=== PATIENT | male | born 1970 | race Caucasian/White ===

== ENCOUNTER 2021-11-21 07:30 | Outpatient (RCR) | payer BC, SELFPAY | END 2022-02-19 09:45 | disposition home or self-care (01) | PROVIDERS: Visit Provider Student in an Organized Health Care Education/Training Program | DX: M54.2 Cervicalgia (principal); Z51.89 Encounter for other specified aftercare | CPT/HCPCS: 97110; 97140; 97162 ==

== ENCOUNTER 2022-12-04 17:01 | Emergency (ER) | payer BC, SELFPAY ==
[2022-12-04 17:17] VITALS: BP 120/77; PULSE 67; RESP 18; TEMP 36.4; O2SAT 97
== END 2022-12-04 18:48 | disposition left against medical advice (07) ==
PROVIDERS: Emergency Provider Family Medicine; PCP Family Medicine
DX: Z53.21 Procedure and treatment not carried out due to patient leaving prior to being seen by health care provider (principal)

== ENCOUNTER 2023-06-04 15:28 | Emergency (ER) | payer BC, SELFPAY ==
[2023-06-04 15:38] VITALS: BP 134/84; PULSE 70; RESP 16; TEMP 36.4; O2SAT 99; BMI 23.1
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
== END 2023-06-04 18:22 | disposition home or self-care (01) ==
PROVIDERS: Emergency Provider Emergency Medicine; PCP Family Medicine
DX: F41.9 Anxiety disorder, unspecified (principal)
CPT/HCPCS: 99282; 99283

== ENCOUNTER 2023-08-07 13:47 | Emergency (ER) | payer BC, SELFPAY ==
--- NOTE | 2023-08-07 13:49 | ED.NURSE ---
pt presented to ED and sat in chair in waiting room. from the waiting room, pt called PD to talk. feels the hospital is a safe place to talk to PD. PD presented and talked to the pt at length, sign a refusal of service form and left.
--- OUTSIDE RECORDS SUMMARY | 2023-08-07 14:12 | XMS_ITS ---
Author Name Unknown Organization [facility] Address [address] [place] [address] Care Team Providers Care Sales And Marketing Professional Name Role Phone Unavailable Unavailable Unavailable Surgery Details Not on file Complications Check Surgery Details section. Procedure Estimated Blood Loss Check Surgery Details section. Procedure Findings Check Surgery Details section. Procedure Specimens Taken Check Surgery Details section.
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
--- OUTSIDE RECORDS SUMMARY | 2023-08-07 14:12 | XMS_ITS | Clinical Summary ---
Author Name Unknown Organization [facility] Address [place], [place] [address] Care Team Providers Care Resident Care Manager Rn Name Role Phone Jalyn Huerta MD Primary Care Provider + Allergies No known active allergies Medications Medication Sig Dispensed Refills Start Date End Date Status fluticasone (50 mcg per actuation) nasal solution (FLONASE)Indications:Al lergic rhinitis, unspecified seasonality, unspecified trigger Inhale 2 Sprays in the nostril(s) once daily. 16 g 08/06/2019 Active cetirizine (ZYRTEC) 10 mg tablet Take 1 Tablet (10 mg) by mouth once daily. 0 09/15/2020 Active Active Problems Problem Noted Date Diagnosed Date ACP (advance care planning) 12/12/2020 Overview: Patient has registered for the virtual ACP class on at 3 PM, but did not attend. Annamaria Bird STOREROOM CLERK Advance Care Planning Educator Cough 09/26/2016 Encounter for long-term (current) use of other m edications 08/24/2011 Bipolar affective disorder 06/17/2008 Overview: Patient is not in agreement with this diagnosis and has requested it be removed from his chart. S/P Achilles tendon repair 05/05/2008 Resolved Problems Problem Noted Date Diagnosed Date Resolved Date Bipolar disorder, most recent episode manic 07/27/2019 12/21/2020 Bipolar I disorder, most rec ent episode (or current) manic, mild 06/01/2008 06/17/2008 Bipolar I disorder, most rec ent episode (or current) manic, severe, specified as with psychotic behavior 04/27/2008 06/17/2008 Rule out Schizoaffective Dis order, Chronic Condition with Acute Exacerbation 04/27/20082019 Immunizations Name Administration Dates Next Due COVID-19 vaccine (Stroho NTAlluring Logic 30mcg/0.3mL) PF, MDV 07/26/2020,07/05/2020 Influenza A (H1N1), Inactivated 03/08/2009 Influenza A (H1N1), Live Intranasal 12/29/2012 Influenza, IIV3 (Age >=3 years) 01/01/2013,12/19,02/02/2006 Influenza, IIV4 12/21/2020, 0,04/10/2018,2016,03/08/2009 Influenza, IIV4 (=>6mos) MDV 12/14/2015,01/06/20 15 Influenza,LAIV4 Live Intrana ehsan (Flumist) 12/29/2012 Td (Age >=7 Years) 03/25/1997 Td, Preservative Free (age > = 7 Years) 11/20/2007 Tdap 12/30/2019,09/11/2017 Zoster (Shingrix-RZV, recombinant) 10/06/2020, Family History Medical History Relation Name Comments Alcoholism Brother Asthma Father Hypertension Father Psychiatric illness Father Cancer Mother Relation Name Status Comments Brother Father Mother Social History Tobacco Use Types Packs/Day Years Used Date Smoking Tobacco: Never Smokeless Tobacco: Never Tobacco Cessation:Counseling Given: Yes Alcohol Use Standard Drinks/Week Comments Not Currently 0 (1 standard drink = 0.6 oz pur e alcohol) 1 drink monthly PHQ-2 Answer Date Recorded PHQ-2 TOTAL SCORE 0 09/19/2021 Social Connections Answer Date Recorded Frequency of Communication with Friends and Fami ly Not on file 07/10/2022 Financial Resource Strain Answer Date R ecorded Difficulty of Paying Living Expenses 2 07/06/2021 Difficulty of Paying Living Expenses 1 07/06/2021 Food Insecurity Answer Date Recorded Worried About Running Out of Food in the Last Ye ar 1 07/06/2021 Transportation Needs Answer Date Record ed Lack of Transportation (Medical) 1 07/06/2021 Housing Stability Answer Date Recorded Unable to Pay for Housing in the Last Year 2 07/06/2021 Sex and Gender Information Value Date Recorded Sex Assigned at Male 04/13/2020 11:24 PM INTERNAL AFFAIRS COMMANDER Gender Identity Male 05/27/2021 12:46 PM INTERNAL AFFAIRS COMMANDER Sexual Orientation Straight 04/13/2020 11 :24 PM INTERNAL AFFAIRS COMMANDER Obstetrics History Last Filed Vital Signs Vital Sign Reading Time Taken Comments Blood Pressure 138/86 05/09/2022 2:06 PM INTERNAL AFFAIRS COMMANDER Pulse 71 05/09/2022 2:06 PM INTERNAL AFFAIRS COMMANDER Temperature 36.3 ??C (97.4 ??F) 05/09/2022 2:06 PM CS T Respiratory Rate 20 04/05/2022 7:39 PM INTERNAL AFFAIRS COMMANDER Oxygen Saturation 100% 05/09/2022 2:06 PM INTERNAL AFFAIRS COMMANDER Inhaled Oxygen Concentration - - Weight 91.9 kg (202 lb 9.6 oz) 05/09/2022 2:06 P M INTERNAL AFFAIRS COMMANDER Height 193 cm (6' 4) 04/05/2022 7:30 PM INTERNAL AFFAIRS COMMANDER Body Mass Index 24.66 04/05/2022 7:30 PM INTERNAL AFFAIRS COMMANDER Plan of Treatment Health Maintenance Due Date Last Done Comments HIV for age 15-65 1985 BMI (ht and wt on same day) for age 18+ 09/19/2022 09/19/2021, 08/17/2021, 12/21/2020, Additional history exists Depression screening for age 12+ 09/20/2022 09/20/2021, 09/19/2021, 07/15/2021, Additional history exists COVID-19 vaccine series ( season) 2022 03/08/2022, 11/09/2021, 02/03/2021, Additional history exists Influenza for age 50-64 11/24/2023 12/22/19, 12/30/2019, 04/10/2018, Additional history exists Lipids for age 45-75 09/29/2025 09/29/2020, 09/25/2019, 08/19/2019, Additional history exists Tetanus booster 12/29/2029 12/30/2019, 06, 11/20/2007, Additional history exists Colonoscopy through age 75 06/30/2030 06/30/2020, Tdap Completed 12/30/2019, 09/11/2017 Zoster (shingles) series for age 50+ Completed 10/06/2020, 06/15/2020 Hepatitis C screening for age 18-79 Completed 09/19/2021 Pneumococcal series for age 6-64 Aged Out No longer eligible based on patient's age to complete this topic Procedures Procedure Name Priority Date/Time Associated Diagnosis Comments ANTI HCV Routine 09/19/2021 9:02 AM CDT Need for hepatitis C screening test LIPID PANEL W REFLEX MEASURED LDL Routine 09/29/2020 9:57 AM CDT Bipolar 1 disorder (HC) SCAN-COLONOSCOPY 06/30/2020 12:0 0 AM CDT from Last 3 Months or Most Recently Relevant to Health Maintenance Results * ANTI HCV (09/19/2021 9:02 AM CDT) Pathologist [facility] HEPATITIS C ANTIBODY Non-React sue Non-React sue 09/19/2021 5:48 PM CDT [facility] Comment:Antibodies to HCV no t detected; does not exclude the possibility of exposure to HCV. Blood BLOOD SPECIMEN / Unknown Venipuncture / Unknown 09/19/2021 9:02 AM CDT 09/19/2021 9:03 AM CDT Patrick Ramirez DO [facility] [address] [place] [address], * LIPID PANEL W REFLEX MEASURED LDL (09/29/2020 9:57 AM CDT) CHOLESTEROL,TOTAL 162 100 - 199 mg/dL 09/29/2020 5:50 PM CDT [facility] TRIGLYCERIDES 98 <150 mg/dL 09/29/2020 5:50 PM CDT [facility] HDL CHOLESTEROL 57 >40 mg/dL 5:50 PM CDT [facility] NON-HDL CHOLESTEROL 105 <145 mg/dl 09/29/2020 5:50 PM CDT [facility] CHOL/HDL RATIO 2.84 <4.50 09/29/2020 5:50 PM CDT [facility] LDL CHOLESTEROL 85 <=130 mg/dL 09/29/2020 5:50 PM CDT [facility] VLDL CHOLESTEROL 20 mg/dL 09/30/19 21 5:50 PM CDT [facility] PROVIDER ORDERED STATUS RANDOM 09/29/2020 5:50 PM CDT [facility] Blood BLOOD SPECIMEN / Unknown Venipuncture / Unknown 09/29/2020 9:57 AM CDT 09/29/2020 9:59 AM CDT Amanda Blount [facility] [address] [place] [address], [place] * SCAN-COLONOSCOPY (06/30/2020 12:00 AM CDT) Scanner OTHER from Last 3 Months or Most Recently Relevant to Health Maintenance Additional Health Concerns Infection Onset Date Last Indicated MRSA Comment:Order contact precautions. 07/27/19 pt eligible for screening Nares surveillance cultures needed to clear patient if <12 months since positive culture. If >12 months since positive culture, precautions can be discontinued if patient has no MRSA risk factors. 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 scrotum exclusions for contact precaution discontinuation (if > 12 months since positive culture): resides in acute/chcf care, receiving hemodialysis, has chronic open wounds/skin damage, has long-term percutaneous indwelling medical devices Exclusions for nares collection (if <12 months since positive culture) include all of the previous exclusions plus patients on antibiotics 7 days prior to collection 07/27/2019 07/27/2019 Advance Directives * Full Code (Latest Code Status on File) Date Activated Date Inactivated Comments 07/26/2019 8:00 PM 08/05/2019 7:31 PM * Full Code Date Activated Date Inactivated Comments 05/04/2008 6:06 PM 05/19/2008 9:17 PM Care Teams Resident Care Manager Rn Relationship Specialty Start Date End Date Jalyn Huerta MD [address] [place] [address] PCP - General Family Practice 08/17/21
--- OUTSIDE RECORDS SUMMARY | 2023-08-07 14:12 | XMS_ITS | Referral Summary ---
Author Name Unknown Organization [facility] Address [address] [place] [address] Care Team Providers Care Yarn Cleaner Name Role Phone Unavailable Primary Care Provider Unavailabl e Source Comments Patient records contain information from all sites at [facility]. For routine questions regarding patient records, call [phone] during business hours, M-F 8:00 AM - 5:00 PM Central Time. Record requests for emergency care only can be directed to [phone] at any time.[facility] Social History Tobacco Use Types Packs/Day Years Used Date Smoking Tobacco: Never Assessed Nutrition Answer Date Recorded Nutrition: EVOO Fat Source Unknown 04/06 Nutrition: Servings of Fruits/Vegetables per Day Not on file 04/06/2022 Dental Answer Date Recorded Dental: Regular Dentist Unknown 04/06/19 Sex and Gender Information Value Date Recorded Sex Assigned at Not on file Gender Identity Not on file Sexual Orientation Not on file Plan of Treatment Not on file Procedures Procedure Name Priority Date/Time Associated Diagnosis Comments EXTI BASIC METABOLIC PANEL, S/P Routine 09/19/2021 9:02 AM CDT EXTI LIPID PANEL W REFLEX MEASURED LDL Routine 09/29/2020 9:57 AM CDT from Last 3 Months or Most Recently Relevant to Health Maintenance
--- OUTSIDE RECORDS SUMMARY | 2023-08-07 14:12 | XMS_ITS | Clinical Summary ---
Author Name Unknown Organization [facility] Address [address] [place] [address] Care Team Providers Care Lens Coating Technician Name Role Phone Unavailable Primary Care Provider Unavailabl e Source Comments Patient records contain information from all sites at [facility]. For routine questions regarding patient records, call [phone] during business hours, M-F 8:00 AM - 5:00 PM Central Time. Record requests for emergency care only can be directed to [phone] at any time.[facility] Social History Tobacco Use Types Packs/Day Years [...] Orientation Not on file Plan of Treatment Health Maintenance Due Date Last Done Comments CT Colonography 1970 Cologuard 1970 Colonoscopy 1970 Colorectal Cancer Screening 1970 FIT 1970 HIV Screening 1970 Hepatitis C Screening 1970 Hepatitis B Vaccines (1 of 3 - 19+ 3-dose series) 1989 Depression Screening (Annual PHQ-2) 03/25/2023 Fasting Glucose for Diabetes Screening 09/19/2024 09/19/2021, 09/25/2019, 08/19/2019, Additional history exists Lipid (Cholesterol) Screening 09/29/2025 09/29/2020, 09/25/2019, 08/19/2019, Additional history exists DTaP,Tdap,and Td Vaccines (3 - Td or Tdap) 12/29/2029 12/30/2019, 09/11/2017, 11/20/2007 Zoster Vaccines Completed 10/06/2020, 06/15/2020 COVID-19 Vaccine Completed 06/14/2023, 01/2023, 03/08/2022, Additional history exists Influenza Vaccine Completed 06/14/2023, , 12/21/2020, Additional history exists Pneumococcal vaccine (0-64 years) Aged Out No longer eligible based on patient's age to complete this topic Procedures Procedure Name Priority Date/Time Associated Diagnosis Comments EXTI BASIC METABOLIC PANEL, S/P Routine 09/19/2021 9:02 AM CDT EXTI LIPID PANEL W REFLEX MEASURED LDL Routine 09/29/2020 9:57 AM CDT from Last 3 Months or Most Recently Relevant to Health Maintenance
--- OUTSIDE RECORDS SUMMARY | 2023-08-07 20:38 | XMS_ITS ---
Author Name Unknown Organization [facility] Address [address] [place] [address] Care Team Providers Care Risk Control Product Liability Director Name Role Phone Unavailable Unavailable Unavailable Surgery Details Not on file Complications Check Surgery Details section. Procedure Estimated Blood Loss Check Surgery Details section. Procedure Findings Check Surgery Details section. Procedure Specimens Taken Check Surgery Details section.
--- OUTSIDE RECORDS SUMMARY | 2023-08-07 20:38 | XMS_ITS | Clinical Summary ---
Author Name Unknown Organization [facility] Address [place], [place] [address] Care Team Providers Care Musical Engineer Name Role Phone Jalyn Huerta MD Primary [...] PM, but did not attend. Annamaria Bird MOTORCYCLE TESTER Advance Care Planning Educator Cough 09/26/2016 Encounter [...] Name Administration Dates Next Due COVID-19 vaccine (IMT NTButlr 30mcg/0.3mL) PF, MDV 07/26/2020,07/05/2020 Influenza A (H1N1), [...] Sex Assigned at Male 04/13/2020 11:24 PM CLIN NURSE SPEC Gender Identity Male 05/27/2021 12:46 PM CLIN NURSE SPEC Sexual Orientation Straight 04/13/2020 11 :24 PM CLIN NURSE SPEC Obstetrics History Last Filed Vital Signs Vital Sign Reading Time Taken Comments Blood Pressure 138/86 05/09/2022 2:06 PM CLIN NURSE SPEC Pulse 71 05/09/2022 2:06 PM CLIN NURSE SPEC Temperature 36.3 ??C (97.4 ??F) 05/09/2022 2:06 PM CS T Respiratory Rate 20 04/05/2022 7:39 PM CLIN NURSE SPEC Oxygen Saturation 100% 05/09/2022 2:06 PM CLIN NURSE SPEC Inhaled Oxygen Concentration - - Weight 91.9 kg (202 lb 9.6 oz) 05/09/2022 2:06 P M CLIN NURSE SPEC Height 193 cm (6' 4) 04/05/2022 7:30 PM CLIN NURSE SPEC Body Mass Index 24.66 04/05/2022 7:30 PM CLIN NURSE SPEC Plan of Treatment Health Maintenance Due Date [...] ANTI HCV (09/19/2021 9:02 AM CDT) Pathologist [facility] HEPATITIS C ANTIBODY Non-React sue Non-React sue 09/19/2021 5:48 PM CDT [facility] Comment:Antibodies to HCV no t detected; does not exclude the possibility of exposure to HCV. Blood BLOOD SPECIMEN / Unknown Venipuncture / Unknown 09/19/2021 9:02 AM CDT 09/19/2021 9:03 AM CDT Patrick Ramirez DO [facility] [address] [place] [address], * LIPID PANEL W REFLEX MEASURED LDL (09/29/2020 9:57 AM CDT) CHOLESTEROL,TOTAL 162 100 - 199 mg/dL 09/29/2020 5:50 PM CDT [facility] TRIGLYCERIDES 98 <150 mg/dL 09/29/2020 5:50 PM CDT [facility] HDL CHOLESTEROL 57 >40 mg/dL 5:50 PM CDT [facility] NON-HDL CHOLESTEROL 105 <145 mg/dl 09/29/2020 5:50 PM CDT [facility] CHOL/HDL RATIO 2.84 <4.50 09/29/2020 5:50 PM CDT [facility] LDL CHOLESTEROL 85 <=130 mg/dL 09/29/2020 5:50 PM CDT [facility] VLDL CHOLESTEROL 20 mg/dL 09/30/19 21 5:50 PM CDT [facility] PROVIDER ORDERED STATUS RANDOM 09/29/2020 5:50 PM CDT [facility] Blood BLOOD SPECIMEN / Unknown Venipuncture / Unknown 09/29/2020 9:57 AM CDT 09/29/2020 9:59 AM CDT Amanda Blount MD [facility] [address] [place] [address], [place] * SCAN-COLONOSCOPY (06/30/2020 12:00 AM CDT) [...] 12 months since positive culture): resides in acute/fpc care, receiving hemodialysis, has chronic open wounds/skin [...] 6:06 PM 05/19/2008 9:17 PM Care Teams Musical Engineer Relationship Specialty Start Date End Date Jalyn Huerta MD [address] [place] [address] PCP - General Family Practice 08/17/21
--- OUTSIDE RECORDS SUMMARY | 2023-08-07 20:38 | XMS_ITS | Clinical Summary ---
Author Name Unknown Organization [facility] Address [address] [place] [address] Care Team Providers Care Drywall Hanger Name Role Phone Unavailable Primary Care Provider Unavailabl e Source Comments Patient records contain information from all sites at [facility]. For routine questions regarding patient records, call [phone] during business hours, M-F 8:00 AM - 5:00 PM Central Time. Record requests for emergency care only can be directed to [phone] at any time.[facility] Social History Tobacco Use Types Packs/Day Years [...]
--- OUTSIDE RECORDS SUMMARY | 2023-08-07 20:38 | XMS_ITS | Referral Summary ---
Author Name Unknown Organization [facility] Address [address] [place] [address] Care Team Providers Care Service Car Driver Name Role Phone Unavailable Primary Care Provider Unavailabl e Source Comments Patient records contain information from all sites at [facility]. For routine questions regarding patient records, call [phone] during business hours, M-F 8:00 AM - 5:00 PM Central Time. Record requests for emergency care only can be directed to [phone] at any time.[facility] Social History Tobacco Use Types Packs/Day [...]
== END 2023-08-07 14:24 | disposition home or self-care (01) ==
PROVIDERS: Emergency Provider Emergency Medicine Emergency Medical Services; PCP Family Medicine
DX: Z53.21 Procedure and treatment not carried out due to patient leaving prior to being seen by health care provider (principal)

== ENCOUNTER 2023-09-11 07:45 | Outpatient (CLI) | payer BC, SELFPAY ==
--- OUTSIDE RECORDS SUMMARY | 2023-09-18 15:01 | XMS_ITS | Clinical Summary ---
Author Organization [facility] Address [address] [place] [address] Care Team Providers Care Industrial Commercial Groundskeeper Name Role Phone Unavailable Primary Care Provider Unavailabl e Source Comments Patient records contain information from all sites at [facility]. For routine questions regarding patient records, call [phone] during business hours, M-F 8:00 AM - 5:00 PM Central Time. Record requests for emergency care only can be directed to [phone] at any time.[facility] Social History Tobacco Use Types Packs/Day Years Used Date Smoking Tobacco: Never Assessed Nutrition Answer Date Recorded Nutrition: EVOO Fat Source Unknown 04/06 Nutrition: Servings of Fruits/Vegetables per Day Not on file 04/06/2022 Dental Answer Date Recorded Dental: Regular Dentist Unknown 04/06/19 23 Sex and Gender Information Value Date Recorded [...]
--- OUTSIDE RECORDS SUMMARY | 2023-09-18 15:02 | XMS_ITS ---
Author Organization [facility] Address [address] [place] [address] Care Team Providers Care Provider Network Manager Name Role Phone Unavailable Unavailable Unavailable Surgery Details Not on file Complications Check Surgery Details section. Procedure Estimated Blood Loss Check Surgery Details section. Procedure Findings Check Surgery Details section. Procedure Specimens Taken Check Surgery Details section.
--- OUTSIDE RECORDS SUMMARY | 2023-09-18 15:02 | XMS_ITS | Data Portability ---
Author Organization [facility] - (IP) Address [address] [place] [address] Care Team Providers Care Health Education Coordinator Name Role Phone CHERI MELTON Primary Care Provider OBED PENG Referring Provider [phone] LISA KRAUSE Belt Splicer Unavailable Assessment Encounter Date Assessment Date Assessment [...] Recorded Time Neck pain Active Hanna Aquino volodymyr [place] - [facility] 12/01/2019 09:26:41 Fracture of cervical spine Active Hanna Aquino volodymyr [place] - [facility] 12/01/2019 09:27:54 Problem Notes None [...] Encounter Closed Date Diagnosis/Indication Diagnosis SNOMED-CT Code [id number] Hanna Aquino [place] [facility] [address] [place] [address] [address] [place] [address] 11/27/2019 15:43:13 11/27/2019 15:43:33 Health Concerns Section Related Observation LastModified by Organization Detai ls LastModified Time None Recorded Concern Status LastModified by Organization Details LastModified Time None Recorded Advance Directives Directive None Recorded Payers Encounter Date Sequence Insurance Name Policy Number Policy Rankin Covered Member ID Rankin Member ID Guarantor Name 11/27/2019 CONNECT POWERED BY [employer] INSURANCE Obed Archuleta Notes Date Note Type [...] PAST SURGICAL HISTORY Left Achilles surgery. MEDICATIONS Nixa, Seroquel, Flonase, and albuterol. ALLERGIES No known drug allergies. SOCIAL HISTORY Negative for alcohol, tobacco, and illicits. The patient has never used tobacco. FAMILY HISTORY Brain aneurysm in his uncle. GLORIA Cody - [facility] 12/01/2019 09:28:24
--- OUTSIDE RECORDS SUMMARY | 2023-09-18 15:02 | XMS_ITS | Clinical Summary ---
Author Organization [employer] [facility] Address [place], [place] [address] Care Team Providers Care Security Assessor Name Role Phone Jalyn Huerta MD Primary [...] PM, but did not attend. Annamaria Bird [facility] Advance Care Planning Educator Cough 09/26/2016 Encounter [...] Name Administration Dates Next Due COVID-19 vaccine ([employer] 30mcg/0.3mL) PF, MDV 07/26/2020,07/05/2020 Influenza A (H1N1), [...] Sex Assigned at Male 04/13/2020 11:24 PM PROCESS IMPROVEMENT MANAGER Gender Identity Male 05/27/2021 12:46 PM PROCESS IMPROVEMENT MANAGER Sexual Orientation Straight 04/13/2020 11 :24 PM PROCESS IMPROVEMENT MANAGER Obstetrics History Last Filed Vital Signs Vital Sign Reading Time Taken Comments Blood Pressure 138/86 05/09/2022 2:06 PM PROCESS IMPROVEMENT MANAGER Pulse 71 05/09/2022 2:06 PM PROCESS IMPROVEMENT MANAGER Temperature 36.3 ??C (97.4 ??F) 05/09/2022 2:06 PM CS T Respiratory Rate 20 04/05/2022 7:39 PM PROCESS IMPROVEMENT MANAGER Oxygen Saturation 100% 05/09/2022 2:06 PM PROCESS IMPROVEMENT MANAGER Inhaled Oxygen Concentration - - Weight 91.9 kg (202 lb 9.6 oz) 05/09/2022 2:06 P M PROCESS IMPROVEMENT MANAGER Height 193 cm (6' 4) 04/05/2022 7:30 PM PROCESS IMPROVEMENT MANAGER Body Mass Index 24.66 04/05/2022 7:30 PM PROCESS IMPROVEMENT MANAGER Plan of Treatment Health Maintenance Due Date [...] Additional history exists Tetanus booster 12/29/2029 12/30/2019, 08/24, 11/20/2007, Additional history exists Colonoscopy through age [...] * ANTI HCV (09/19/2021 9:02 AM CDT) HEPATITIS C ANTIBODY Non-React sue Non-React sue 09/19/2021 5:48 PM CDT [facility] Comment:Antibodies to HCV no t detected; does not exclude the possibility of exposure to HCV. Blood BLOOD SPECIMEN / Unknown Venipuncture / Unknown 09/19/2021 9:02 AM CDT 09/19/2021 9:03 AM CDT Patrick Ramirez DO [facility] [address] [place] [address], [place] * LIPID PANEL W REFLEX MEASURED LDL (09/29/2020 9:57 AM CDT) CHOLESTEROL,TOTAL 162 100 - 199 mg/dL 09/29/2020 5:50 PM CDT [facility] TRIGLYCERIDES 98 <150 mg/dL 09/29/2020 5:50 PM CDT [facility] HDL CHOLESTEROL 57 >40 mg/dL 5:50 PM CDT [facility] NON-HDL CHOLESTEROL 105 <145 mg/dl 09/29/2020 5:50 PM CDT [facility] CHOL/HDL RATIO 2.84 <4.50 09/29/2020 5:50 PM CDT [facility] LDL CHOLESTEROL 85 <=130 mg/dL 09/29/2020 5:50 PM CDT [facility] VLDL CHOLESTEROL 20 mg/dL 09/30/19 5:50 PM CDT [facility] PROVIDER ORDERED STATUS RANDOM 09/29/2020 5:50 PM CDT [facility] Blood BLOOD SPECIMEN / Unknown Venipuncture / Unknown 09/29/2020 9:57 AM CDT 09/29/2020 9:59 AM CDT Amanda Blount MD [facility] [address] [place] [address], [place] * SCAN-COLONOSCOPY (06/30/2020 12:00 AM CDT) [...] 12 months since positive culture): resides in acute/shelter care, receiving hemodialysis, has chronic open wounds/skin [...] 6:06 PM 05/19/2008 9:17 PM Care Teams Security Assessor Relationship Specialty Start Date End Date Jalyn Huerta MD [address] [place] [address] PCP - General Family Practice 08/17/21
--- OUTSIDE RECORDS SUMMARY | 2023-09-18 15:02 | XMS_ITS | Referral Summary ---
Author Organization [facility] Address [address] [place] [address] Care Team Providers Care Centrifuge Separator Operator Name Role Phone Unavailable Primary Care Provider Unavailabl e Source Comments Patient records contain information from all sites at [facility]. For routine questions regarding patient records, call [phone] during business hours, M-F 8:00 AM - 5:00 PM Central Time. Record requests for emergency care only can be directed to [phone] at any time.[facility] Social History Tobacco Use [...]
== END 2023-09-11 07:46 | disposition home or self-care (01) ==
LOC: NFLDREF 09-18 14:59
PROVIDERS: PCP Family Medicine; Referring Provider Family Medicine; Visit Provider Family Medicine
DX: R79.89 Other specified abnormal findings of blood chemistry (principal); Z13.220 Encounter for screening for lipoid disorders; Z12.5 Encounter for screening for malignant neoplasm of prostate
CPT/HCPCS: 80053; 80061; G0103

== ENCOUNTER 2024-09-15 07:34 | Outpatient (CLI) | payer BC, SELFPAY | END 2024-09-15 07:35 | disposition home or self-care (01) | LOC: NFLDREF 09-16 14:45 | PROVIDERS: PCP Family Medicine; Referring Provider Family Medicine; Visit Provider Family Medicine | DX: E78.5 Hyperlipidemia, unspecified (principal); R74.01 Elevation of levels of liver transaminase levels; Z12.5 Encounter for screening for malignant neoplasm of prostate | CPT/HCPCS: 80053; 80061; G0103 ==

== ENCOUNTER 2024-09-23 07:53 | Outpatient (CLI) | payer BC, SELFPAY | END 2024-09-23 07:54 | disposition home or self-care (01) | PROVIDERS: PCP Family Medicine; Visit Provider Family Medicine | DX: R74.01 Elevation of levels of liver transaminase levels (principal); R73.01 Impaired fasting glucose; R79.89 Other specified abnormal findings of blood chemistry; Z13.6 Encounter for screening for cardiovascular disorders; Z12.5 Encounter for screening for malignant neoplasm of prostate | CPT/HCPCS: 80076; 82728; 82977; 84443; 86803; 87340 ==

== ENCOUNTER 2024-10-01 07:09 | Outpatient (CLI) | payer BC, SELFPAY ==
--- NOTE | 2024-10-01 07:15 | CRLHL7_ITS ---
For Patients: As a result of the Century Cures Act, medical imaging exams and procedure reports are released immediately into your electronic medical record. You may view this report before your referring provider. If you have questions, please contact your health care provider. INDICATION: ELEVATED LEVELS OF LIVER TRANSAMINASE COMPARISON: none TECHNIQUE: Real time ceja scale imaging and color Doppler analysis was performed of the right upper quadrant. FINDINGS: The liver measures 18.4 cm. Liver echotexture is mildly increased. No intrahepatic mass. There is a normal appearance of the hepatic IVC and proximal abdominal aorta. There is no evidence of ascites. The gallbladder is of normal size and there is no evidence of intraluminal stones or sludge. The gallbladder wall measures 1.7 mm in thickness. The common bile duct is of normal size and measures 4.1 mm in diameter at the level of the lupe hepatis. The pancreas appears normal. There is no evidence of a stone or hydronephrosis within the right kidney. The right kidney measures 12.5 cm in length. IMPRESSION: Mild hepatomegaly and mild hepatic steatosis. Dictated by Chris Huynh MD @ 10/01/2024 8:21:37 AM (Electronically Signed)
== END 2024-10-01 07:10 | disposition home or self-care (01) ==
LOC: US 07:12
PROVIDERS: PCP Family Medicine; Visit Provider Family Medicine
DX: R74.01 Elevation of levels of liver transaminase levels (principal); R16.0 Hepatomegaly, not elsewhere classified; K76.0 Fatty (change of) liver, not elsewhere classified
CPT/HCPCS: 76705